=== PATIENT | female | born 1950 | race Caucasian/White ===

== ENCOUNTER 2016-12-24 19:40 | Emergency (ER) | payer MEDICARE, OTHER ==
[~2016-12-24] VITALS: Ht 149.9 cm; Wt 48.0 kg
[2016-12-24] MEDS ORDERED: SODIUM CHLORIDE 0.9% 1,000 ML IV ONE (19:46)
[2016-12-24] MEDS ORDERED: PLEASE ENTER ALLERGIES MC SCH ×2 (20:00)
[2016-12-24] MEDS ORDERED: SODIUM CHLORIDE FLUSH 10ML SYR IVF ONE (20:00)
[2016-12-24] MEDS ORDERED: ATEN25TA PO (20:03)
[2016-12-24] MEDS ORDERED: AMLO2.5T2 PO (20:03)
[2016-12-24] MEDS ORDERED: GABA300C10 PO (20:03)
[2016-12-24 20:35] LABS: HEMOGLOBIN 12.8 g/dL (11.7-16.4)
[2016-12-24 20:50] VITALS: BP 136/94
[2016-12-24 20:50] LABS: BLOOD UREA NITROGEN 18 mg/dL (7-18)
[2016-12-24 20:54] LABS: IS PT STATUS REG ER OR PRE ER? YES
== END 2016-12-24 22:03 | disposition home or self-care (01) ==
LOC: ED 21:40
DX: R00.2 Palpitations (principal); I47.1 Supraventricular tachycardia
CPT/HCPCS: 36415; 71010; 80048; 82040; 83735; 84439; 84443; 84484; 85025; 93005; 99285

== ENCOUNTER → 2017-01-06 | Outpatient (CLI) | payer MEDICARE ==
[~2017-01-06] MED LIST: AMLO2.5T2 PO; ATEN25TA PO; GABA300C10 PO
== END | disposition home or self-care (01) ==
LOC: RAD 08:55
PROVIDERS: ATTEND Urology
DX: N20.0 Calculus of kidney (principal)
CPT/HCPCS: 74000